=== PATIENT | male | born 1985 | race African-American/Black ===

== ENCOUNTER 2017-05-05 09:20 | Emergency (ER) | payer BC, OTHER ==
[~2017-05-05] VITALS: Ht 177.8 cm; Wt 95.7 kg
[2017-05-05 11:52] VITALS: BP 151/67
== END 2017-05-05 12:33 | disposition home or self-care (01) ==
LOC: ER 09:20
DX: S33.5XXA Sprain of ligaments of lumbar spine, initial encounter (principal); X58.XXXA Exposure to other specified factors, initial encounter; Y93.89 Activity, other specified; Y99.8 Other external cause status; Y92.89 Other specified places as the place of occurrence of the external cause